=== PATIENT | female | born 1935 | race African-American/Black ===

== ENCOUNTER 2017-08-06 08:36 | Inpatient (IN) | payer OTHER ==
[~2017-08-06] VITALS: Ht 157.5 cm; Wt 54.1 kg
--- NOTE | ~2017-08-06 | EKG ---
[place] [address] [facility] [employer] [place] [address] ELECTROCARDIOGRAM REPORT Name: BAIRON TOMAS Room #: 359-P ADM IN M.R.#: [id number] Admission: 08/06/17 Attend Phys: Orlando Freeman MD Discharge: Date of : 33 Report #: [id number] THIS REPORT FOR: //name// [facility] ED Test Date: 2017-08-06 Test Time: 09:33:47 Pat Name: BAIRON TOMAS Department: Room: 359 Gender: F Calender Roll Operator: LEONELA : 1935 Requested By: Diogo Pate Order Number: [id number] MD: Parish Medina Measurements Intervals [place] Rate: 77 P: 56 MO: 177 QRS: 54 QRSD: 134 T: -33 QT: 435 QTc: 493 Interpretive Statements Sinus rhythm Left bundle branch block Baseline wander in lead(s) I,III,aVL No previous ECG available for comparison Electronically Signed On 08-08-2017 7:42:53 DIRECTOR OF BRAND MARKETING by Parish Medina [email or web address] <ELECTRONICALLY SIGNED> By: Parish Medina MD, [facility] 08/08/17 0742 2 2 Parish Medina MD, [facility] /EPI
--- NOTE | ~2017-08-06 | 2DMMODE ---
[facility] [address] [place] [address] 2 D/M-MODE ECHOCARDIOGRAM Name: GENOVEVABAIRON Room #: 359-P ADM IN M.R.#: [id number] Admission: 08/06/17 Attend Phys: Orlando Freeman MD Discharge: Date of : 33 Date of Service: 08/06/17 1507 Report #: [id number] THIS REPORT FOR: //name// APPROVED REPORT Study performed: 08/06/2017 14:03:56 EXAM: Comprehensive 2D, Doppler, and color-flow Echocardiogram Patient Location: Echo lab Room #: [facility] Status: routine BSA: 1.59 HR: 61 bpm BP: 127/71 mmHg Rhythm: NSR/PVC's Other Information Study Quality: Good Indications CHF, dyspnea 2D Dimensions RVDd: 28.87 mm LVEF(%): 27.98 (>50%) IVSd: 10.47 (7-11mm) LVOT Diam: 20.75 (18-24mm) LVDd: 44.69 mm PWd: 11.81 (7-11mm) Ascending Ao: 29.24 (22-36mm) LVDs: 38.90 (25-40mm) Aortic Root: 30.36 mm Sewell's LVEF: 27.98 % Volumes Left Atrial Volume (Systole) Single Plane 4CH: 61.69 mL Single Plane 2CH: 45.98 mL LA ESV Index: 36.00 mL/m2 Aortic Valve AoV Peak Mert.: 1.00 m/s AO Peak Gr.: 3.98 mmHg LVOT Max P.31 mmHg LVOT Max V: 0.91 m/s OFELIA Vmax: 3.08 cm2 Mitral Valve E/A Ratio: 0.7 MV Decel. Time: 208.85 ms [facility] [place] [place] [address] 2 D/M-MODE ECHOCARDIOGRAM Name: GENOVEVABAIRON Room #: 359-P [facility] IN M.R.#: [id number] Admission: 08/06/17 Attend Phys: Orlando Freeman MD Discharge: Date of : 33 Date of Service: 08/06/17 1507 Report #: [id number] Max Mert.: 0.60 m/s MV A Mert.: 0.88 m/s MV PHT: 60.57 ms IVRT: 83.04 ms Pulmonary Valve PV Peak Mert.: 1.15 m/s PV Peak Gr.: 5.33 mmHg Tricuspid Valve TR Peak Mert.: 2.59 m/s RAP Estimate: 5.00 mmHg TR Peak Gr.: 26.90 mmHg PA Pressure: 32.00 mmHg Left Ventricle The left ventricle is normal size. There is normal left ventricular wall thickness. Left ventricular systolic function is moderate to severely decreased. LVEF is 30-35%. Mild diastolic dysfunction is present (impaired relaxation pattern). Right Ventricle The right ventricle is normal size. The right ventricular systolic function is normal. Atria Left atrium is mildly dilated. The right atrium size is normal. Aortic Valve The Aortic valve is mildly sclerotic. Trace aortic regurgitation. There is no aortic valvular stenosis. Mitral Valve Mitral valve leaflets are mildly thickened. Mild to moderate mitral regurgitation. Tricuspid Valve The tricuspid valve is normal in structure. Mild tricuspid regurgitation. Estimated PAP is 30-35mmHg. Pulmonic Valve The pulmonary valve is normal in structure. Trace pulmonic regurgitation. Great Vessels The aortic root is normal in size. The ascending aorta is normal in size. IVC is normal in size and collapses >50% with [facility] [address] [place] [address] 2 D/M-MODE ECHOCARDIOGRAM Name: TOMASBAIRON Room #: 359-P [facility] IN M.R.#: [id number] Admission: 08/06/17 Attend Phys: Orlando Freeman MD Discharge: Date of : 33 Date of Service: 08/06/17 1507 Report #: [id number] inspiration. Pericardium Small pericardial effusion. Left and right pleural effusions. <Conclusion> The left ventricle is normal size. Left ventricular systolic function is moderate to severely decreased. Mild diastolic dysfunction is present (impaired relaxation pattern). The right ventricle is normal size. Left atrium is mildly dilated. The right atrium size is normal. Trace aortic regurgitation. Mild to moderate mitral regurgitation. Mild tricuspid regurgitation. Estimated PAP is 30-35mmHg. <ELECTRONICALLY SIGNED> By: Eddi Medley MD 08/06/17 150 06 06 Eddi Medley MD /INF
--- NOTE | ~2017-08-06 | EKG ---
[address] [address] ELECTROCARDIOGRAM REPORT Name: BAIRON TOMAS Room #: 359- ADM IN M.R.#: [id number] Admission: 08/06/17 Attend Phys: Orlando Freeman MD Discharge: Date of : 33 Report #: [id number] THIS REPORT FOR: //name// [facility] Test Date: 2017-08-07 Test Time: 08:04:11 Pat Name: BAIRON TOMAS Department: Room: 359 Gender: F Seo Professional: tavon : 1935 Requested By: Tessa Haley Order Number: [id number] MD: Federico Dillon Measurements Intervals [place] Rate: 67 P: 24 PA: 182 QRS: -9 QRSD: 158 T: -74 QT: 466 QTc: 492 Interpretive Statements Sinus rhythm LVH with secondary repolarization abnormality Borderline prolonged QT interval No previous ECG available for comparison Electronically Signed On 08-08-2017 8:16:42 GLASS BEAD MAKER by Federico Dillon [email or web address] <ELECTRONICALLY SIGNED> By: Federico Dillon MD 08/08/17 0816 3 Federico Dillon MD /VITALY
--- NOTE | ~2017-08-06 | EKG ---
[address] [place] [address] ELECTROCARDIOGRAM REPORT Name: BAIRON TOMAS Room #: 359- ADM IN M.R.#: [id number] Admission: 08/06/17 Attend Phys: Orlando Freeman MD Discharge: Date of : 33 Report #: [id number] THIS REPORT FOR: //name// [facility] Test Date: 2017-08-06 Test Time: 17:12:36 Pat Name: BAIRON TOMAS Department: Room: 359 Gender: F Store Merchandiser: Arturo DE LA PAZ : 1935 Requested By: Tessa Haley Order Number: [id number] MD: Parish Medina Measurements Intervals [place] Rate: 63 P: 64 [place]: 179 QRS: -22 QRSD: 149 T: 255 QT: 489 QTc: 501 Interpretive Statements Sinus rhythm Probable left atrial enlargement Prolonged QT interval No previous ECG available for comparison Electronically Signed On 08-08-2017 7:53:07 PRE PAROLE COUNSELING AIDE by aPrish Medina [email or web address] <ELECTRONICALLY SIGNED> By: Parish Medina MD, [facility] 08/08/17 0753 1711 11 Parish Medina MD, [facility] /EPI
--- NOTE | ~2017-08-06 | EKG ---
[place] [address] [address] [facility] [place] [address] ELECTROCARDIOGRAM REPORT Name: BAIRON TOMAS Room #: 359- ADM IN M.R.#: [id number] Admission: 08/06/17 Attend Phys: Orlando Freeman MD Discharge: Date of : 33 Report #: [id number] THIS REPORT FOR: //name// [facility] Test Date: 2017-08-08 Test Time: 07:43:35 Pat Name: BAIRON TOMAS Department: Room: 359 Gender: F Upholstery Mechanic: RINA : 1935 Requested By: Tessa Haley Order Number: [id number] MD: Parish Medina Measurements Intervals [place] Rate: 68 P: 69 NM: 180 QRS: -6 QRSD: 149 T: -74 QT: 451 QTc: 480 Interpretive Statements Sinus rhythm Probable left atrial enlargement Left bundle branch block Compared to ECG 08/06/2017 09:33:47 No significant changes Electronically Signed On 08-08-2017 9:15:41 LAYOUT INSPECTOR by Parish Medina [email or web address] <ELECTRONICALLY SIGNED> By: Parish Medina MD, [facility] 08/08/17 0915 2 Parish Medina MD, [facility] /EPI
[2017-08-06 08:37] VITALS: BP 180/110
[2017-08-06 09:06] LABS: HEMOGLOBIN 13.6 gm/dL (12.0-15.0); MCH 27.3 pg (26.0-34.0); MCHC 32.5 g/dL (28.0-37.0); RBC 4.99 mil/uL (4.20-5.00); WBC 4.3 thou/uL (4.0-11.0)
[2017-08-06 09:14] LABS: ANION GAP 9 mmol/L (7-16); BUN 11 mg/dL (7-18); CALCIUM 8.2 mg/dL (8.5-10.1); CHLORIDE 110 mmol/L (98-107); CO2 24 mmol/L (21-32); GLUCOSE 196 mg/dL (74-106); SODIUM 143 mmol/L (136-145)
[2017-08-06] MEDS ORDERED: BENICAR40 MG PO (09:20)
[2017-08-06] MEDS ORDERED: CALCIUM CITRAT1 EAC7 PO (09:21)
[2017-08-06 09:22] LABS: TROPONIN-I < 0.04 ng/mL (<0.06)
[2017-08-06] MEDS ORDERED: CRESTOR10 MG PO (09:22)
[2017-08-06] MEDS ORDERED: FISH OIL 1,2001 EAC7 PO (09:22)
[2017-08-06] MEDS ORDERED: COREG25 MG PO (09:22)
[2017-08-06] MEDS ORDERED: GABAPENTIN 100100 MG PO (09:22)
[2017-08-06] MEDS ORDERED: MURO-12815 ML/BOT OPHTHALMIC (09:23)
[2017-08-06] MEDS ORDERED: PLAVIX 75 MG TA75 M1 PO (09:23)
[2017-08-06] MEDS ORDERED: VITAMIN D1000 UNI2 PO (09:24)
[2017-08-06] MEDS ORDERED: [UNRECOGNIZED DRUG - OTHER] (09:24)
[2017-08-06] MEDS ORDERED: OMNIPRED5 ML (09:25)
[2017-08-06 09:47] VITALS: BP 147/87
[2017-08-06 09:47] LABS: BE(vivo) 0.7 mmol/L (-2 to +3); HCO3 24.8 mmol/L (22.0-26.0); PCO2 38.2 mmHg (35.0-45.0); PO2 59.9 mmHg (80.0-100.0); pH 7.431 (7.360-7.450); sO2 91.8 % (92.0-98.0)
[2017-08-06 10:15] VITALS: BP 131/80
[2017-08-06 11:54] VITALS: BP 127/71
[2017-08-06 16:34] VITALS: BP 119/90
[2017-08-06 20:30] VITALS: BP 127/68
[2017-08-07 04:10] VITALS: BP 146/73
[2017-08-07 06:23] LABS: HEMATOCRIT 37.8 % (37.0-47.0); HEMOGLOBIN 12.3 gm/dL (12.0-15.0); MCH 26.9 pg (26.0-34.0); MCHC 32.5 g/dL (28.0-37.0); MCV 82.9 fL (80.0-100.0); RBC 4.56 mil/uL (4.20-5.00); RDW 15.9 % (10.5-14.5); WBC 5.6 thou/uL (4.0-11.0)
[2017-08-07 06:36] LABS: CALCIUM 8.5 mg/dL (8.5-10.1)
[2017-08-07 06:41] LABS: POTASSIUM 2.9 mmol/L (3.5-5.1)
[2017-08-07 07:38] VITALS: BP 155/82
[2017-08-07 11:36] VITALS: BP 94/53
[2017-08-07 16:42] VITALS: BP 143/69
[2017-08-07 19:50] VITALS: BP 150/67
[2017-08-08 04:00] VITALS: BP 150/80
[2017-08-08 06:30] LABS: ALBUMIN 3.1 g/dL (3.4-5.0); CALCIUM 8.9 mg/dL (8.5-10.1); CREATININE 0.9 mg/dL (0.6-1.0); MAGNESIUM 1.9 mg/dL (1.8-2.4); POTASSIUM 3.1 mmol/L (3.5-5.1); TOTAL BILIRUBIN 0.7 mg/dL (<0.1-1.0); TOTAL PROTEIN 6.2 g/dL (6.4-8.2)
[2017-08-08 07:00] LABS: TSH 1.367 uIU/mL (0.358-3.740)
[2017-08-08 07:58] VITALS: BP 141/91
[2017-08-08 10:24] VITALS: BP 141/91
[2017-08-08 11:39] VITALS: BP 127/57
[2017-08-08] MEDS ORDERED: LASIX 40 MG TAB40 M2 PO (13:05)
[2017-08-08] MEDS ORDERED: COZAAR 50 MG TA50 M2 PO (13:05)
[2017-08-08] MEDS ORDERED: POTASSIUM20 PO (13:19)
[2017-08-08 14:07] VITALS: BP 141/91
[2017-08-08 14:23] VITALS: BP 141/91
== END 2017-08-08 16:20 | disposition home health service (06) | DRG 291 ==
LOC: ER 08:36 → 3W 09:25 → ENTRNSPT 08-08 15:38 → EDTRNSPTSTS 08-08 15:43 → 3W 08-08 16:20
PROVIDERS: Emergency Medicine; Hospitalist; Registered Nurse
PROC: 5A09357 Assistance with Respiratory Ventilation, Less than 24 Consecutive Hours, Continuous Positive Airway Pressure (ICD-10-PCS; principal; 2017-08-06)
DX: I11.0 Hypertensive heart disease with heart failure (principal); J96.01 Acute respiratory failure with hypoxia; E87.6 Hypokalemia; I50.23 Acute on chronic systolic (congestive) heart failure; Z86.73 Personal history of transient ischemic attack (TIA), and cerebral infarction without residual deficits; Z90.710 Acquired absence of both cervix and uterus; Z87.891 Personal history of nicotine dependence; Z99.81 Dependence on supplemental oxygen
CPT/HCPCS: 10879

== ENCOUNTER 2017-08-13 11:17 | Inpatient (IN) | payer OTHER ==
[~2017-08-13] VITALS: Ht 157.5 cm; Wt 49.6 kg
--- NOTE | ~2017-08-13 | EKG ---
[place] [address] [facility] [employer] [address] ELECTROCARDIOGRAM REPORT Name: BAIRON TOMAS Room #: 170-6 ADM IN M.R.#: [id number] Admission: 08/13/17 Attend Phys: Yonas David Discharge: Date of : 33 Report #: [id number] THIS REPORT FOR: //name// [facility] ED Test Date: 2017-08-13 Test Time: 11:41:28 Pat Name: BAIRON TOMAS Department: Room: 170 Gender: F Paper Machine Backtender: JAZMINE : 1935 Requested By: Kolton Adams Order Number: [id number] MD: Federico Dillon Measurements Intervals [place] Rate: 61 P: 74 MT: 188 QRS: -24 QRSD: 158 T: 249 QT: 486 QTc: 490 Interpretive Statements Sinus rhythm Probable left atrial enlargement Left bundle branch block Compared to ECG 08/08/2017 07:43:35 No significant changes Electronically Signed On 08-13-2017 16:18:33 CHESTNUT TANNER by Federico Dillon [email or web address] <ELECTRONICALLY SIGNED> By: Federico Dillon MD 08/13/17 1618 1141 1141 Federico Dillon MD /VITALY
[~2017-08-13 11:17] MED LIST: BENICAR40 MG PO; CALCIUM CITRAT1 EAC7 PO; COREG25 MG PO; COZAAR 50 MG TA50 M2 PO; CRESTOR10 MG PO; FISH OIL 1,2001 EAC7 PO; GABAPENTIN 100100 MG PO; LASIX 40 MG TAB40 M2 PO; MURO-12815 ML/BOT OPHTHALMIC; OMNIPRED5 ML; PLAVIX 75 MG TA75 M1 PO; POTASSIUM20 PO; VITAMIN D1000 UNI2 PO; [UNRECOGNIZED DRUG - OTHER]
[2017-08-13 11:32] VITALS: BP 130/51
[2017-08-13 12:19] LABS: URINE BILIRUBIN NEGATIVE (Negative); URINE BLOOD NEGATIVE (Negative); URINE CLARITY CLEAR; URINE COLOR YELLOW; URINE GLUCOSE-RANDOM* NEGATIVE (Negative); URINE KETONES NEGATIVE (Negative); URINE LEUKOCYTES-REFLEX NEGATIVE (Negative); URINE NITRITE-REFLEX NEGATIVE (Negative); URINE PROTEIN (DIPSTICK) NEGATIVE (Negative); URINE UROBILINOGEN 0.2 E.U./dl (0.2-1.0)
[2017-08-13 12:37] LABS: HEMOGLOBIN 13.2 gm/dL (12.0-15.0); MCH 26.9 pg (26.0-34.0); MCHC 32.2 g/dL (28.0-37.0); MCV 83.6 fL (80.0-100.0); RBC 4.91 mil/uL (4.20-5.00); RDW 16.1 % (10.5-14.5); WBC 4.4 thou/uL (4.0-11.0)
[2017-08-13 12:40] LABS: ANION GAP 9 mmol/L (7-16); BUN 21 mg/dL (7-18); CALCIUM 9.6 mg/dL (8.5-10.1); CHLORIDE 105 mmol/L (98-107); CO2 29 mmol/L (21-32); GLUCOSE 137 mg/dL (74-106); SODIUM 143 mmol/L (136-145)
[2017-08-13 12:49] LABS: TROPONIN-I < 0.04 ng/mL (<0.06)
[2017-08-13 16:07] VITALS: BP 106/87
[2017-08-13 18:03] VITALS: BP 106/87
[2017-08-13 18:45] VITALS: BP 121/56
[2017-08-13 19:28] VITALS: BP 109/52
[2017-08-13 23:27] VITALS: BP 127/65
[2017-08-14 03:44] LABS: ANION GAP 7 mmol/L (7-16); BUN 20 mg/dL (7-18); CALCIUM 8.8 mg/dL (8.5-10.1); CHLORIDE 107 mmol/L (98-107); CO2 27 mmol/L (21-32); CREATININE 0.8 mg/dL (0.6-1.0); GLUCOSE 88 mg/dL (74-106); POTASSIUM 3.9 mmol/L (3.5-5.1); SODIUM 141 mmol/L (136-145)
[2017-08-14 03:46] LABS: ALBUMIN 3.2 g/dL (3.4-5.0); PHOSPHORUS 3.2 mg/dL (2.5-4.9); TROPONIN-I < 0.04 ng/mL (<0.06)
[2017-08-14 04:19] VITALS: BP 125/63
[2017-08-14 07:20] VITALS: BP 140/83
[2017-08-14] MEDS ORDERED: LASIX 20 MG TAB20 MG PO (09:02)
[2017-08-14 09:50] VITALS: BP 140/83
[2017-08-14 09:56] VITALS: BP 140/83
== END 2017-08-14 10:30 | disposition home or self-care (01) | DRG 312 ==
LOC: ER 11:17 → EROBS 14:00 → 2N 14:00 → ENTRNSPT 08-14 10:18 → EDTRNSPTSTS 08-14 10:21 → 2N 08-14 10:30
PROVIDERS: Emergency Medicine; Hospitalist
DX: I95.1 Orthostatic hypotension (principal); I42.9 Cardiomyopathy, unspecified; I11.0 Hypertensive heart disease with heart failure; I50.9 Heart failure, unspecified; E86.9 Volume depletion, unspecified; Z79.899 Other long term (current) drug therapy
CPT/HCPCS: 10194